=== PATIENT | male | born 1995 | race Hispanic/Latino ===

== ENCOUNTER 2022-11-10 17:51 | Emergency (ER) | payer OTHER ==
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
[2022-11-10 20:34] LABS: Specific Gravity 1.022 (1.005-1.030); Urine Bacteria None Seen /HPF (<20); Urine Bilirubin NEGATIVE (Negative); Urine Blood Negative (Negative); Urine Clarity Clear (Clear); Urine Color Light-Yellow (Yellow); Urine Glucose NEGATIVE (Negative); Urine Mucus Slight /HPF (None Seen); Urine Protein NEGATIVE (Negative); Urine RBC <5 /HPF (None Seen); Urine Urobilinogen Normal (Normal); Urine pH 5.5 (5.0-7.0)
[2022-11-10 23:05] VITALS: TEMP 99.9; O2SAT 100
[2022-11-10 23:09] VITALS: BP 147/94
== END 2022-11-10 20:46 | disposition home or self-care (01) ==
LOC: ER 17:51
DX: N13.4 Hydroureter (principal); N13.39 Other hydronephrosis; V49.49XA Driver injured in collision with other motor vehicles in traffic accident, initial encounter
CPT/HCPCS: 71046; 74176; 76377; 81001; 99283